=== PATIENT | female | born 1985 | race Caucasian/White ===

== ENCOUNTER 2016-10-28 18:35 | Emergency (ER) | payer MEDICAID ==
[~2016-10-28] VITALS: Ht 162.6 cm; Wt 74.4 kg
[~2016-10-28 18:35] MED LIST: COLACE100 MG PO; FERROUS SULFAT325 M1 PO; MOTRIN800 MG PO; NORCO 5-325 TA1 EACH PO; PRENATAL PLUS I1 TAB PO
[2017-02-18] MEDS ORDERED: IBUPROFEN800 MG PO (14:46)
[2017-02-18] MEDS ORDERED: COLACE100 MG PO (14:48)
== END 2016-10-28 20:49 | disposition short-term general hospital (02) ==
LOC: ER 18:35
DX: B34.9 Viral infection, unspecified (principal)

== ENCOUNTER 2017-01-26 00:33 | Emergency (ER) | payer MEDICAID ==
[~2017-01-26] VITALS: Ht 162.6 cm; Wt 81.2 kg
[2017-02-18] MEDS ORDERED: IBUPROFEN800 MG PO (14:46)
[2017-02-18] MEDS ORDERED: COLACE100 MG PO (14:48)
== END 2017-01-26 02:00 | disposition short-term general hospital (02) ==
LOC: ER 00:33
DX: O99.89 Other specified diseases and conditions complicating pregnancy, childbirth and the puerperium (principal); R06.4 Hyperventilation; Z3A.36 36 weeks gestation of pregnancy; Z79.899 Other long term (current) drug therapy